=== PATIENT | male | born 2005 | race Two or more races ===

== ENCOUNTER 2024-11-05 20:15 | Emergency (ER) | payer SELFPAY ==
[2024-11-05] MEDS ORDERED: predniSONE 20 MG Tab PO ONE (20:16)
[2024-11-05] MEDS ORDERED: Azithromycin 250 MG Tab PO ONE (20:16)
== END 2024-11-05 21:25 | disposition home or self-care (01) ==
LOC: FB.ED 20:15
DX: J03.90 Acute tonsillitis, unspecified (principal)
CPT/HCPCS: 99282; A9270; J7512